=== PATIENT | male | born 1980 | race Caucasian/White ===

== ENCOUNTER 2017-06-19 08:14 | Emergency (ER) | payer BC, SELFPAY ==
[2017-06-19 08:15] VITALS: BP 158/93; PULSE 64; RESP 20; TEMP 36.4; O2SAT 99; BMI 30.2
--- NOTE | 2017-06-19 08:38 | CT_ITS ---
STUDY: CT ABDOMEN AND PELVIS WITHOUT CONTRAST REASON FOR EXAM: Male, 36 years old. Left flank pain. RADIATION DOSAGE (If Supplied By Facility): CTDIvol = ( 9.28 ) mGy, DLP = ( 505.68 ) mGycm TECHNIQUE: Transaxial images were obtained from the dome of the diaphragm to the symphysis pubis without oral contrast, and without intravenous contrast. Sagittal and coronal images were reconstructed. Individualized dose optimization techniques were used for this CT. COMPARISON: None. FINDINGS: Minimal degree of increased markings at the lung bases suggesting probable bibasilar dependent atelectasis. The visualized portions of the heart are within normal limits. Normal liver. Normal gallbladder and extrahepatic biliary system. Borderline splenomegaly. Normal pancreas. Normal bilateral adrenal glands. Normal right kidney. There is engorgement of the left kidney with mild left hydronephrosis and left hydroureter due to a 2.3 mm calculus at the left ureterovesical junction. There are nonobstructive left intrarenal calculi. The largest measures 3 mm. Normal visualized stomach. Normal small intestine. Normal colon. The appendix is visualized and appears normal. Normal abdominal aorta. Normal inferior vena cava. Normal retroperitoneum. Normal urinary bladder. Calcified phleboliths are seen in the pelvis. Small bilateral benign-appearing inguinal lymph nodes. Normal abdominal wall. Normal osseous structures. CT/Abdomen/Pelvis without Cont IMPRESSION: Mild left hydronephrosis and left hydroureter due to a 2.3 mm calculus at the left ureterovesical junction. Nonobstructive left intrarenal calculi. Electronically Signed: Osei Winkler MD at 10:34 EST Tel [phone], Service support ,
--- NOTE | 2017-06-19 08:53 | ED.VISSUMM ---
- ER Visit Summary Date of Service: 06/19/17 Chief Complaint: Flank pain History of Present Illness: The patient is a 36 M for history of kidney stones. He presents with left flank pain. It started 5 days ago. It has been intermittent since then, but worse today. He had some nausea today. No fevers. He did note some dark urine and possible blood. He has not required surgery, stenting, or any other procedures for kidney stones in the past. Physical Examination: Vital signs unremarkable. Nontoxic and in no acute distress. Skin appears normal. Abdomen soft. Back shows mild left CVA tenderness. Otherwise normal. Test Results: Labs, urinalysis, CT pending Emergency Department Course and Treatment: Patient treated with fluids, Zofran, and Toradol while awaiting results. Platelets 141. Creatinine 1.37. I do not have old tests for comparison. Urinalysis showed blood but no sign of infection. CT showed a mild left hydro-nephrosis with a 2.3 mm left UVJ stone. Patient will likely pass the stone without intervention. He will be discharged to follow-up with urology in for recheck of his labs. He was given a prescription for Percocet, Zofran, Flomax. Strain urine. Discharge. Treatment Plan: As above Disposition: Discharged Impression: 1. Left ureteral colic This note was generated with [employer] dictation software. It may contain incorrect words, spelling, and punctuation that were not noted in review of the chart prior to signing ED Disposition - Plan for ED Patient: Chief Complaint: Complaint
--- NOTE | 2017-06-19 08:58 | ED.DCSUM_ITS ---
- ER Visit Summary Date of Service: 06/19/17 Chief Complaint: Flank pain History of Present Illness: The patient is a 36 M for history of kidney stones. He presents with left flank pain. It started 5 days ago. It has been intermittent since then, but worse today. He had some nausea today. No fevers. He did note some dark urine and possible blood. He has not required surgery, stenting, or any other procedures for kidney stones in the past. Physical Examination: Vital signs unremarkable. Nontoxic and in no acute distress. Skin appears normal. Abdomen soft. Back shows mild left CVA tenderness. Otherwise normal. Test Results: Labs, urinalysis, CT pending Emergency Department Course and Treatment: Patient treated with fluids, Zofran, and Toradol while awaiting results. Platelets 141. Creatinine 1.37. I do not have old tests for comparison. Urinalysis showed blood but no sign of infection. CT showed a mild left hydro- nephrosis with a 2.3 mm left UVJ stone. Patient will likely pass the stone without intervention. He will be discharged to follow-up with urology in for recheck of his labs. He was given a prescription for Percocet, Zofran, Flomax. Strain urine. Discharge. Treatment Plan: As above Disposition: Discharged Impression: 1. Left ureteral colic This note was generated with [employer] dictation software. It may contain incorrect words, spelling, and punctuation that were not noted in review of the chart prior to signing ED Disposition - Plan for ED Patient: Chief Complaint: Complaint
[2017-06-19 09:05] LABS: Absolute Lymphocyte Count 1.15 X10^3/ul (0.83-4.51); Basophil# 0.03 X10^3/uL; Basophil% 0.5 % (0-1); Eosinophil# 0.12 X10^3/uL; Eosinophils% 2.1 % (0-5); Hematocrit 45.6 % (40-54); Hemoglobin 16.3 g/dl (13.0-16.5); Lymphocyte # 1.15 X10^3/ul (4.0); Mean Corp Hgb Conc 35.7 g/gl (32-36); Mean Corpuscular Hgb 30.4 pg (27.0-32.0); Mean Corpuscular Volume 85.1 fL (80-94); Mean Platelet Vol. 11.6 fl (6.2-12.0); Monocyte# 0.43 X10^3/uL; Monocyte% 7.5 % (0-10); Neutrophil # 4.01 X10^3/uL (2.7-7.7); Neutrophil % 69.7 % (47-70); Platelet Count 141 K/mm3 (150-450); RBC Distribution Width SD 36.5 fl (35.1-43.9); Red Blood Count 5.36 M/mm3 (4.6-6.2); White Blood Count 5.8 K/mm3 (4.4-11.0)
[2017-06-19 09:06] LABS: Bacteria 0 SEEN /hpf (None Seen); Squamous Epithelial Cells - UA 0 SEEN /hpf (0-5)
[2017-06-19 09:07] LABS: Color, Urine Yellow (Yellow); Glucose, Dipstick Normal (Normal); Ketone-Dipstick Negative (Negative); Leukocyte Esterase-Dipstick 25 /ul (Negative); Nitrite-Dipstick Negative (Negative); Occult Blood-Urine 250 /ul (Negative); Protein-Dipstick 15 mg/dl (Negative); Specific Gravity, Urine 1.025 (1.002-1.030); Urine Bilirubin Dipstick Negative (Negative); Urine Clarity Sl. Cloudy (Clear); Urine Urobilinogen Normal (Normal)
[2017-06-19] MEDS: 0.9% Normal Saline 1,000 ML 1000 ML IV (09:08)
[2017-06-19] MEDS: Ondansetron 4 MG/2 ML Vial IV (09:09)
[2017-06-19] MEDS: Ketorolac 30 MG/ML Syringe IV (09:09)
[2017-06-19 09:15] LABS: Anion Gap 8 (5-15); BUN 12 mg/dL (7-18); BUN/Creat Ratio 8.8 RATIO (10-20); Calcium,Total 8.9 mg/dL (8.5-10.1); Chloride 105 mmol/L (98-107); Creatinine, Serum 1.37 mg/dL (0.70-1.30); EST Glomerular Filtration Rate 63 mL/min (>60); Est Glom Filt Rate - Afr Amer 76 mL/min (>60); Estimated Creatinine Clearance 75.98 ml/min; Glucose 104 mg/dL (74-106); Potassium 4.1 mmol/L (3.5-5.1); Sodium Level 142 mmol/L (136-145)
[2017-06-19 09:16] LABS: Mucous, Urine 1+ /hpf (<or=2+); Red Blood Cells-Urine 25-50 SEEN /hpf (0-5); White Blood Cells 0-5 SEEN /hpf (0-5)
[2017-06-19 09:21] LABS: POSITIVE COUNT NO; POSITIVE DIFFERENTIAL NO; POSITIVE MORPHOLOGY NO
--- NOTE | 2017-06-19 10:47 | ED.DEP ---
ED Disposition - Plan for ED Patient: Chief Complaint: Complaint Instructions: ED Stone Renal W Colic Prescriptions: Oxycodone HCl/Acetaminophen [Percocet 5/325] 1 tab PO Q6H PRN PRN 3 Days #12 tab PRN Reason: Pain Ondansetron [Zofran Odt] 4 mg PO Q8H PRN PRN #10 tab PRN Reason: Nausea Tamsulosin HCl [Flomax] 0.4 mg PO DAILY 14 Days cap Referrals: Luis Pratt MD [STAFF PHYSICIAN] -
[2017-06-19 11:05] VITALS: BP 151/88; PULSE 67; RESP 16; O2SAT 99
== END 2017-06-19 11:06 | disposition home or self-care (01) ==
PROVIDERS: Emergency Provider Emergency Medicine
DX: N23 Unspecified renal colic (principal); Z87.442 Personal history of urinary calculi
CPT/HCPCS: 74176; 80048; 81001; 85025; 99283; J2405